=== PATIENT | female | born 1985 | race Caucasian/White ===

== ENCOUNTER 2016-08-03 17:19 | Emergency (ER) | payer MEDICAID ==
[~2016-08-03] VITALS: Ht 175.3 cm; Wt 137.4 kg
[~2016-08-03 17:19] MED LIST: CLIN300C93 PO; HYDR-3240 PO; TRAM50TA2 PO
[2016-08-03] MEDS ORDERED: SODIUM CHLORIDE 0.9% 1,000ML IVBOLUS ONE (17:30)
[2016-08-03] MEDS ORDERED: SODIUM CHLORIDE FLUSH 10ML SYR IVF ONE (17:30)
[2016-08-03] MEDS ORDERED: ONDANSETRON 2MG/ML, 2ML IVPush ONE (17:30)
[2016-08-03 17:56] LABS: HEMOGLOBIN 13.4 g/dL (11.7-16.4)
[2016-08-03 18:03] LABS: BLOOD UREA NITROGEN 18 mg/dL (7-18)
[2016-08-03 18:03] LABS: PATH.CAST-FLAG NOT PRESENT; SPERM-FLAG NOT PRESENT; SRC-FLAG NOT PRESENT; XTAL-FLAG NOT PRESENT; YLC-FLAG NOT PRESENT
[2016-08-03 18:09] LABS: ASPARTATE AMINO TRANSFERASE 9 U/L (15-37)
[2016-08-03] MEDS ORDERED: KETOROLAC 30 MG/1 ML IVPush ONE (19:00)
[2016-08-03 20:12] VITALS: BP 101/56
== END 2016-08-03 20:14 | disposition home or self-care (01) ==
LOC: ED 20:08
DX: N83.201 Unspecified ovarian cyst, right side (principal); E66.01 Morbid (severe) obesity due to excess calories; Z87.440 Personal history of urinary (tract) infections; Z87.891 Personal history of nicotine dependence; Z98.51 Tubal ligation status; Z90.49 Acquired absence of other specified parts of digestive tract
CPT/HCPCS: 36415; 76801; 80053; 81001; 84702; 85025; 87086; 96361; 96374; 96375; 99285; J1885; J2405; J7030

== ENCOUNTER 2016-08-17 00:06 | Emergency (ER) | payer MEDICAID ==
[~2016-08-17] VITALS: Ht 175.3 cm; Wt 136.2 kg
[2016-08-17 01:04] VITALS: BP 129/76
== END 2016-08-17 01:05 | disposition home or self-care (01) ==
LOC: ED 00:30
DX: G51.0 Bell's palsy (principal); E66.01 Morbid (severe) obesity due to excess calories; Z90.49 Acquired absence of other specified parts of digestive tract; Z90.89 Acquired absence of other organs; Z98.890 Other specified postprocedural states; Z98.51 Tubal ligation status
CPT/HCPCS: 93005; 99283

== ENCOUNTER 2016-10-01 20:16 | Emergency (ER) | payer MEDICAID ==
[~2016-10-01] VITALS: Ht 177.8 cm; Wt 131.0 kg
[2016-10-01 20:18] VITALS: BP 138/84
== END 2016-10-01 21:31 | disposition home or self-care (01) ==
LOC: ED 21:18
DX: J20.9 Acute bronchitis, unspecified (principal); J00 Acute nasopharyngitis [common cold]
CPT/HCPCS: 71020; 93005; 99284

== ENCOUNTER 2017-04-15 15:04 | Emergency (ER) | payer MEDICAID ==
[~2017-04-15] VITALS: Ht 175.3 cm; Wt 107.1 kg
[~2017-04-15 15:04] MED LIST changes: +CLIN300C8 PO; -CLIN300C93 PO
[2017-04-15 15:06] VITALS: BP 123/82
[2017-04-15] MEDS ORDERED: DIAZEPAM 5 MG TABLET PO ONE (15:30)
[2017-04-15] MEDS ORDERED: KETOROLAC 30 MG/1 ML IM ONE (15:30)
[2017-04-15] MEDS ORDERED: DIAZEPAM 5 MG TABLET ONE (15:36)
[2017-04-15] MEDS ORDERED: KETOROLAC 30 MG/1 ML ONE (15:36)
== END 2017-04-15 16:24 | disposition home or self-care (01) ==
LOC: ED 16:18
DX: S39.012A Strain of muscle, fascia and tendon of lower back, initial encounter (principal); L04.1 Acute lymphadenitis of trunk; E66.01 Morbid (severe) obesity due to excess calories; Z90.49 Acquired absence of other specified parts of digestive tract; X58.XXXA Exposure to other specified factors, initial encounter; Y93.89 Activity, other specified; Y92.89 Other specified places as the place of occurrence of the external cause; Y99.9 Unspecified external cause status
CPT/HCPCS: 96372; 99283; J1885

== ENCOUNTER 2017-07-11 18:31 | Emergency (ER) | payer MEDICAID ==
[~2017-07-11] VITALS: Ht 175.3 cm; Wt 108.4 kg
[2017-07-11 18:32] VITALS: BP 143/85
== END 2017-07-11 19:42 | disposition home or self-care (01) ==
LOC: ED 19:36
DX: M79.661 Pain in right lower leg (principal); Z90.49 Acquired absence of other specified parts of digestive tract; E66.01 Morbid (severe) obesity due to excess calories; G51.0 Bell's palsy; Z68.35 Body mass index [BMI] 35.0-35.9, adult
CPT/HCPCS: 99284

== ENCOUNTER 2017-11-02 10:02 | Emergency (ER) | payer MEDICAID, OTHER ==
[~2017-11-02] VITALS: Ht 175.3 cm; Wt 100.0 kg
[2017-11-02] MEDS ORDERED: HYDROcodone/APAP 5/325 TABLET PO ONE (10:30)
[2017-11-02] MEDS ORDERED: HYDROcodone/APAP 5/325 TABLET ONE (10:35)
[2017-11-02 11:08] VITALS: BP 118/76
== END 2017-11-02 11:10 | disposition home or self-care (01) ==
LOC: ED 10:58
DX: L03.115 Cellulitis of right lower limb (principal); F17.200 Nicotine dependence, unspecified, uncomplicated
CPT/HCPCS: 99284

== ENCOUNTER 2018-02-11 09:50 | Emergency (ER) | payer OTHER ==
[~2018-02-11] VITALS: Ht 175.3 cm; Wt 98.0 kg
[2018-02-11] MEDS ORDERED: LIDOCAINE 2% VISCOUS, 100ML MM ONE (10:46)
[2018-02-11] MEDS ORDERED: LIDOCAINE 2% VISCOUS 15 ML UDC ONE (10:53)
[2018-02-11] MEDS ORDERED: OXYcodone/APAP 5/325MG TABLET ONE (10:53)
[2018-02-11] MEDS ORDERED: OXYcodone/APAP 5/325MG TABLET PO ONE (11:00)
[2018-02-11] MEDS ORDERED: ACYCLOVIR 5% TP ONE (11:50)
[2018-02-11] MEDS ORDERED: ACYCLOVIR 800 MG TABLET PO SCH (12:00)
[2018-02-11] MEDS ORDERED: ACYCLOVIR 800 MG TABLET PO ONE (12:30)
[2018-02-11] MEDS ORDERED: ACYCLOVIR OINT 5%, 15GM TP ONE (12:30)
[2018-02-11 12:37] VITALS: BP 104/71
[2018-02-11] MEDS ORDERED: CEFTRIAXONE 250 MG ONE (12:41)
[2018-02-11] MEDS ORDERED: CEFTRIAXONE 1,000 MG IM ONE (13:00)
== END 2018-02-11 12:58 | disposition home or self-care (01) ==
LOC: ED 10:08
DX: N76.0 Acute vaginitis (principal); F17.200 Nicotine dependence, unspecified, uncomplicated
CPT/HCPCS: 87529; 96372; 99284; J0696

== ENCOUNTER 2018-11-30 14:00 | Emergency (ER) | payer SELFPAY ==
[~2018-11-30] VITALS: Ht 175.3 cm; Wt 86.5 kg
[2018-11-30 14:04] VITALS: BP 102/78
== END 2018-11-30 16:28 | disposition left against medical advice (07) ==
LOC: ED 16:22
DX: R51 Headache (principal); Z53.21 Procedure and treatment not carried out due to patient leaving prior to being seen by health care provider

== ENCOUNTER 2019-06-02 11:02 | Emergency (ER) | payer SELFPAY ==
[~2019-06-02] VITALS: Ht 175.3 cm; Wt 85.0 kg
[2019-06-02] MEDS ORDERED: FAMOTIDINE 20 MG/2 ML IV ONE (11:30)
[2019-06-02] MEDS ORDERED: SODIUM CHLORIDE 0.9% 1,000ML IVBOLUS ONE (11:30)
[2019-06-02] MEDS ORDERED: DICYCLOMINE 10 MG/ML, 2ML IM ONE (11:30)
[2019-06-02] MEDS ORDERED: DICYCLOMINE 10 MG/ML, 2ML ONE (11:45)
[2019-06-02] MEDS ORDERED: FAMOTIDINE 20 MG/2 ML ONE (11:45)
--- NOTE | 2019-06-02 12:00 | NUR ---
THIS IS A 33 YO F BIB [facility] W/ C/O EPIGASTRIC/PERIUMBILICAL ABD PAIN, NAUSEA, CHILLS, BODYACHES AND DIARRHEA X5 DAYS. NADN. PT IS TACHYCARDIC OTHER VS WITHIN NORMAL LIMITS. RESTING ON GURNEY W/ CALL LIGHT IN REACH.
[2019-06-02 12:13] LABS: BASOPHILS # (AUTO) 0.01 x10^3/uL (0-0.1); BASOPHILS % (AUTO) 0 % (0-1); EOSINOPHILS # (AUTO) 0.01 x10^3/uL (0-0.4); EOSINOPHILS % (AUTO) 0 % (1-7); LYMPHOCYTES # (AUTO) 0.88 x10^3/uL (1-3.4); LYMPHOCYTES % (AUTO) 15 % (22-44); MD NO; MEAN CORPUSCULAR HEMOGLOBIN 26.5 pg (27.0-34.8); MEAN CORPUSCULAR HGB CONC 31.7 g/dL (32.4-35.8); MEAN CORPUSCULAR VOLUME 83.5 fL (80-100); MEAN PLATELET VOLUME 8.3 fL (7.4-10.4); MONOCYTES # (AUTO) 0.41 x10^3/uL (0.2-0.8); MONOCYTES % (AUTO) 7 % (2-9); NEUTROPHILS # (AUTO) 4.49 x10^3/uL (1.8-6.8); NEUTROPHILS % (AUTO) 77 % (42-75); PLATELET COUNT 181 x10^3/uL (130-400); RED BLOOD COUNT 4.92 x10^6/uL (3.82-5.3); RED CELL DISTRIBUTION WIDTH 18.3 % (9.6-15.2)
[2019-06-02 12:20] LABS: ALANINE AMINOTRANSFERASE 10 U/L (12-78); ALBUMIN 3.8 g/dL (3.4-5.0); ANION GAP 10 mmol/L (5-15); CALCIUM 8.6 mg/dL (8.5-10.1); CHLORIDE 105 mmol/L (98-107)
--- NOTE | 2019-06-02 12:20 | NUR ---
PIV STARTED. PT MEDICATED PER EMAR. LABS COLLECTED. VS STABLE. CALL LIGHT IN REACH. AWAITING TEST RESULTS AT THIS TIME.
[2019-06-02 12:24] LABS: ALKALINE PHOSPHATASE 79 U/L (45-117); BILIRUBIN,TOTAL 0.4 mg/dL (0.2-1.0); TOTAL PROTEIN 8.1 g/dL (6.4-8.2)
--- NOTE | 2019-06-02 12:59 | NUR ---
PT RESTING ON [employer] W/ CALL LIGHT IN REACH. DC INSTRUCTIONS UP. PER WILL WAIT FOR 1L NS TO FINISH INFUSING BEFORE DC.
[2019-06-02 13:31] VITALS: BP 103/74
== END 2019-06-02 13:45 | disposition home or self-care (01) ==
LOC: ED 13:30
DX: R10.84 Generalized abdominal pain (principal); R19.7 Diarrhea, unspecified; F17.200 Nicotine dependence, unspecified, uncomplicated; Z90.49 Acquired absence of other specified parts of digestive tract; Z98.51 Tubal ligation status
CPT/HCPCS: 36415; 80053; 83690; 84703; 85025; 96361; 96372; 96374; 99283; J0500; J3490; J7030

== ENCOUNTER 2019-11-27 00:51 | Emergency (ER) | payer SELFPAY ==
--- NOTE | 2019-11-27 01:07 | NUR ---
CALLED PT IN LOBBY WITH NO ANWSER
== END 2019-11-27 01:30 | disposition left against medical advice (07) ==
LOC: ED 01:20
DX: K08.89 Other specified disorders of teeth and supporting structures (principal); Z53.21 Procedure and treatment not carried out due to patient leaving prior to being seen by health care provider